=== PATIENT | male | born 1935 | race Two or more races ===

== ENCOUNTER → 2020-04-16 08:00 | Outpatient (CLI) | payer OTHER | END | disposition home or self-care (01) | LOC: PPH VACUNA 08:00 | PROVIDERS: ATTEND Emergency Medicine Pediatric Emergency Medicine | DX: Z23 Encounter for immunization (principal) ==

== ENCOUNTER 2024-02-14 09:46 | Outpatient (CLI) | payer OTHER ==
[~2024-02-14 09:46] MED LIST: DOXYCYCLINE HY100 MG PO; ELIQUIS2.5 MG PO; GLUCOTROL XL5 MG PO; HYZAA PO; HYZAAR 100-12.1 EACH; INTEGRA PLUS C1 EACH PO; LIPIT PO; LIPITOR40 M1 PO; TOPROL XL25 M1; ULTRAM50 MG PO
== END 2024-02-14 09:54 | disposition home or self-care (01) ==
LOC: RAD 09:46
PROVIDERS: ATTEND Radiology Diagnostic Radiology
DX: M25.512 Pain in left shoulder (principal); M54.16 Radiculopathy, lumbar region